=== PATIENT | male | born 1955 | race Caucasian/White ===

== ENCOUNTER 2019-05-12 11:15 | Inpatient (IN) | payer MEDICARE, MEDICAID ==
[~2019-05-12] VITALS: Ht 175.3 cm; Wt 78.0 kg
[2019-05-12] MEDS ORDERED: ONDANSETRON HCL 4MG/2ML INJ IV STA (11:46)
[2019-05-12] MEDS ORDERED: SODIUM CHLORIDE 0.9% 1,000 ML IV ONE (11:46)
[2019-05-12 12:28] LABS: BASOPHILS % 0.3 % (0.0-2.0); EOSINOPHILS % 1.3 % (0.0-5.0); HEMATOCRIT. 30.6 % (42.0-52.0); HEMOGLOBIN. 10.2 g/dL (14.0-18.0); LYMPHOCYTES % 19.3 % (20.0-50.0); MEAN CORPUSCULAR HEMOGLOBIN 30.8 pg (28.0-32.0); MEAN CORPUSCULAR VOLUME 92.5 fL (80.0-94.0); NEUTROPHILS % 72.1 % (40.0-76.0); PLATELET 159 x1000/uL (130-400); RED BLOOD CELL COUNT 3.31 mill/uL (4.7-6.1); RED CELL DISTRIBUTION WIDTH 14.6 % (11.6-14.6)
[2019-05-12 12:35] LABS: CHLORIDE 110 mEq/L (98-107)
[2019-05-12] MEDS ORDERED: ASPIRIN 81MG TABLET PO ONE (14:00)
[2019-05-12 14:24] LABS: CLARITY URINE CLEAR (CLEAR); COLOR URINE YELLOW (YELLOW); KETONES URINE NEGATIVE (NEGATIVE); LEUKOCYTE ESTERASE URINE NEGATIVE (NEGATIVE); NITRITE URINE NEGATIVE (NEGATIVE); OCCULT BLOOD URINE NEGATIVE (NEGATIVE); PH URINE 5.5 (4.5-8.0); PROTEIN URINE 4+ (NEGATIVE); SPECIFIC GRAVITY URINE 1.014 (1.005-1.030); UROBILINOGEN URINE 0.2 E.U./dL (0.2-1.0)
[2019-05-12] MEDS ORDERED: DEXTROSE 50% WATER 50ML SYRINGE IV PRN (17:00)
[2019-05-12] MEDS ORDERED: ACETAMINOPHEN 325MG TABLET PO PRN (17:00)
[2019-05-12] MEDS ORDERED: ONDANSETRON HCL 4MG/2ML INJ IV PRN (17:00)
[2019-05-12] MEDS ORDERED: HYDRALAZINE 20MG/ML VIAL IV NR (17:00)
[2019-05-12] MEDS ORDERED: NIFEDIPINE XL 60MG TAB PO NR (17:00)
[2019-05-12] MEDS ORDERED: CLONIDINE 0.2MG TABLET PO ONE (17:00)
[2019-05-12] MEDS: BLOOD SUGAR DIAGNOSTIC STRIP TEST SCH ×2 (17:11→21:00)
[2019-05-12] MEDS: INSULIN LISPRO 100 UNITS/ML SUBCUT SCH (21:00)
[2019-05-12 21:41] VITALS: BP 162/65
[2019-05-12] MEDS: HYDRALAZINE HCL 100MG TABLET PO SCH (22:27)
[2019-05-13] MEDS: INSULIN LISPRO 100 UNITS/ML SUBCUT SCH ×4 (05:58→20:24)
[2019-05-13] MEDS: BLOOD SUGAR DIAGNOSTIC STRIP TEST SCH ×4 (06:00→20:20)
[2019-05-13] MEDS ORDERED: FURO-152 MT (06:10)
[2019-05-13] MEDS ORDERED: LISI2.5T47 MT (06:10)
[2019-05-13] MEDS ORDERED: ISOS10TA53 MT ×2 (06:10)
[2019-05-13] MEDS ORDERED: AMLO2.5T2 MT (06:10)
[2019-05-13] MEDS ORDERED: ASPI-1158 MT (06:10)
[2019-05-13] MEDS ORDERED: GLIP5TAB12 MT (06:10)
[2019-05-13] MEDS ORDERED: HYDR-4133 MT (06:10)
[2019-05-13] MEDS ORDERED: COR3 MT (06:10)
[2019-05-13 06:33] LABS: BASOPHILS % 0.5 % (0.0-2.0); EOSINOPHILS % 2.2 % (0.0-5.0); HEMATOCRIT. 28.8 % (42.0-52.0); HEMOGLOBIN. 9.6 g/dL (14.0-18.0); LYMPHOCYTES % 24.3 % (20.0-50.0); MEAN CORPUSCULAR HEMOGLOBIN 30.8 pg (28.0-32.0); MEAN CORPUSCULAR VOLUME 92.2 fL (80.0-94.0); MONOCYTES % 8.4 % (2.0-8.0); NEUTROPHILS % 64.6 % (40.0-76.0); PLATELET 151 x1000/uL (130-400); RED BLOOD CELL COUNT 3.12 mill/uL (4.7-6.1); RED CELL DISTRIBUTION WIDTH 14.3 % (11.6-14.6)
[2019-05-13] MEDS ORDERED: NIFEDIPINE XL 60MG TAB PO SCH (09:00)
[2019-05-13] MEDS: HYDRALAZINE HCL 100MG TABLET PO SCH (09:46)
[2019-05-13] MEDS ORDERED: REGADENOSON 0.4 MG/5 ML IV NR (14:00)
[2019-05-13] MEDS: HYDRALAZINE HCL 25MG TABLET PO SCH ×2 (14:56→22:00)
[2019-05-13] MEDS: ASPIRIN 81MG EC TABLET PO SCH (14:57)
[2019-05-13] MEDS ORDERED: GUAIFENESIN-DM 200MG-20MG/10ML UDC PO PRN (19:45)
[2019-05-13] MEDS: AMLODIPINE 5MG TABLET PO SCH (20:13)
[2019-05-13] MEDS ORDERED: CARVEDILOL 3.125 MG TABLET PO SCH (21:00)
[2019-05-14] VITALS: BP 163/61
[2019-05-14 04:00] VITALS: BP 174/56
[2019-05-14] MEDS: HYDRALAZINE HCL 25MG TABLET PO SCH ×2 (05:17→05:42)
[2019-05-14] MEDS: INSULIN LISPRO 100 UNITS/ML SUBCUT SCH ×2 (05:52→12:40)
[2019-05-14] MEDS: BLOOD SUGAR DIAGNOSTIC STRIP TEST SCH ×2 (05:53→12:10)
[2019-05-14 06:07] LABS: BASOPHILS % 0.4 % (0.0-2.0); EOSINOPHILS % 2.2 % (0.0-5.0); HEMATOCRIT. 30.1 % (42.0-52.0); LYMPHOCYTES % 28.8 % (20.0-50.0); MEAN CORPUSCULAR HEMOGLOBIN 30.7 pg (28.0-32.0); MEAN CORPUSCULAR VOLUME 92.5 fL (80.0-94.0); MEAN PLATELET VOLUME 9.3 fl (7.4-10.4); MONOCYTES % 8.1 % (2.0-8.0); NEUTROPHILS % 60.5 % (40.0-76.0); PLATELET 157 x1000/uL (130-400); RED BLOOD CELL COUNT 3.25 mill/uL (4.7-6.1); RED CELL DISTRIBUTION WIDTH 14.4 % (11.6-14.6)
[2019-05-14 08:00] VITALS: BP 172/68
[2019-05-14] MEDS: ASPIRIN 81MG EC TABLET PO SCH (08:54)
[2019-05-14] MEDS: AMLODIPINE 5MG TABLET PO SCH (08:54)
[2019-05-14] MEDS ORDERED: ISOSORBIDE MONONITRATE 30MG TABLET SR 24HR PO SCH (09:00)
[2019-05-14] MEDS ORDERED: LISINOPRIL 5MG TABLET PO SCH (09:00)
[2019-05-14 12:00] VITALS: BP 165/71
[2019-05-14] MEDS ORDERED: REGADENOSON 0.4 MG/5 ML IV ONE (13:20)
[2019-05-14] MEDS ORDERED: HYDRALAZINE HCL 50MG TABLET PO SCH (14:00)
[2019-05-14] MEDS ORDERED: AMLO5TAB88 PO (14:01)
[2019-05-14] MEDS ORDERED: ISOS30TA6 PO (14:01)
[2019-05-14] MEDS ORDERED: LISI-186 PO (14:01)
[2019-05-14] MEDS ORDERED: HYDR-4135 PO (14:01)
[2019-05-14 16:00] VITALS: BP 146/70
[2019-05-14 16:10] VITALS: BP 146/70
== END 2019-05-14 17:50 | disposition home or self-care (01) | DRG 682 ==
LOC: ER 11:49 → 8WST 14:44 → EDBEDREQTM 14:53 → ENRESERV 20:48
PROVIDERS: ADMIT Internal Medicine Nephrology; ATTEND Internal Medicine Nephrology
DX: N17.9 Acute kidney failure, unspecified (principal); E43 Unspecified severe protein-calorie malnutrition; I42.9 Cardiomyopathy, unspecified; I13.0 Hypertensive heart and chronic kidney disease with heart failure and stage 1 through stage 4 chronic kidney disease, or unspecified chronic kidney disease; I50.40 Unspecified combined systolic (congestive) and diastolic (congestive) heart failure; G90.8 Other disorders of autonomic nervous system; I16.0 Hypertensive urgency; I25.10 Atherosclerotic heart disease of native coronary artery without angina pectoris; N18.9 Chronic kidney disease, unspecified; E11.22 Type 2 diabetes mellitus with diabetic chronic kidney disease; E78.00 Pure hypercholesterolemia, unspecified; E87.8 Other disorders of electrolyte and fluid balance, not elsewhere classified; E78.5 Hyperlipidemia, unspecified; D63.1 Anemia in chronic kidney disease; Z79.4 Long term (current) use of insulin; Z95.5 Presence of coronary angioplasty implant and graft; Z82.49 Family history of ischemic heart disease and other diseases of the circulatory system; Z79.899 Other long term (current) drug therapy; Z68.25 Body mass index [BMI] 25.0-25.9, adult
CPT/HCPCS: 36415; 71045; 78452; 80048; 80061; 81003; 82962; 83036; 83735; 83880; 84443; 84484; 93005; 93017; 93306; 96361; 96374; 96375; 97161; 99285; A9500; J0360; J1815; J2405; J2785; J7030